=== PATIENT | female | born 1965 | race American Indian/Alaskan Native ===

== ENCOUNTER 2021-12-25 14:53 | Emergency (ER) | payer BC, MEDICARE ==
[2021-12-25 15:00] VITALS: BP 150/75
== END 2021-12-25 17:18 | disposition left against medical advice (07) ==
LOC: ED 14:53
DX: R07.9 Chest pain, unspecified (principal); Z53.21 Procedure and treatment not carried out due to patient leaving prior to being seen by health care provider